=== PATIENT | male | born 1995 | race Caucasian/White ===

== ENCOUNTER 2023-03-06 07:40 | Emergency (ER) | payer SELFPAY ==
--- NOTE | 2023-03-06 08:17 | EDPHYS ---
Physician Documentation [facility] Name: Jayy Webster Age: 27 yrs Sex: Male : 1995 Arrival Date: 03/06/2023 Time: 07:40 Bed 3 Private MD: ED Physician Bam Johnson HPI: 03/06 08:12 This 27 yrs old Male presents to ER via Ambulatory with complaints of Cyst - sherry on neck. 08:12 The patient presents with an abscess of the back of neck, The patient presents with sherry cellulitis of the back of neck. Description: The affected area is moderate sized, confluent. Onset: The symptoms/episode began/occurred 7 day(s) ago. Possible cause(s): unknown. Associated signs and symptoms: The patient has no apparent associated signs or symptoms. Modifying factors: the symptoms are alleviated by remaining still, the symptoms are aggravated by pressure, squeezing the lesion and expressing the contents, touching. Severity of symptoms: At their worst the symptoms were moderate, in the emergency department the symptoms are unchanged. The patient has not experienced similar symptoms in the past. Historical: - Allergies: 07:51 No Known Allergies; hb - Home Meds: 07:51 None [Active]; hb - PMHx: 07:51 None; hb - PSHx: 07:51 None; hb - Immunization history:: Adult Immunizations up to date. - Social history:: Smoking status: Patient denies any tobacco usage or history of. - Family history:: not pertinent. ROS: 08:12 Constitutional: Negative for fever, chills, and weight loss, Eyes: Negative for injury, sherry pain, redness, and discharge, ENT: Negative for injury, pain, and discharge, Neck: Negative for injury, pain, and swelling, Cardiovascular: Negative for chest pain, palpitations, and edema, Respiratory: Negative for shortness of breath, cough, wheezing, and pleuritic chest pain, Abdomen/GI: Negative for abdominal pain, nausea, vomiting, diarrhea, and constipation, Back: Negative for injury and pain, : Negative for injury, bleeding, discharge, and swelling, MS/Extremity: Negative for injury and deformity, Neuro: Negative for headache, weakness, numbness, tingling, and seizure, Psych: Negative for depression, anxiety, suicide ideation, homicidal ideation, and hallucinations, Allergy/Immunology: Negative for hives, rash, and allergies, Endocrine: Negative for neck swelling, polydipsia, polyuria, polyphagia, and marked weight changes, Hematologic/Lymphatic: Negative for swollen nodes, abnormal bleeding, and unusual bruising, 08:12 Skin: Positive for abscess, cellulitis, Exam: 08:12 Constitutional: This is a well developed, well nourished patient who is awake, alert, sherry and in no acute distress. Head/Face: Normocephalic, atraumatic. Eyes: Pupils equal round and reactive to light, extra-ocular motions intact. Lids and lashes normal. Conjunctiva and sclera are non-icteric and not injected. Cornea within normal limits. Periorbital areas with no swelling, redness, or edema. ENT: Nares patent. No nasal discharge, no septal abnormalities noted. Tympanic membranes are normal and external auditory canals are clear. Oropharynx with no redness, swelling, or masses, exudates, or evidence of obstruction, uvula midline. Mucous membranes moist. Neck: Trachea midline, no thyromegaly or masses palpated, and no cervical lymphadenopathy. Supple, full range of motion without nuchal rigidity, or vertebral point tenderness. No Meningismus. Chest/axilla: Normal chest wall appearance and motion. Nontender with no deformity. No lesions are appreciated. Cardiovascular: Regular rate and rhythm with a normal S1 and S2. No gallops, murmurs, or rubs. Normal PMI, no JVD. No pulse deficits. Respiratory: Lungs have equal breath sounds bilaterally, clear to auscultation and percussion. No rales, rhonchi or wheezes noted. No increased work of breathing, no retractions or nasal flaring. Abdomen/GI: Soft, non-tender, with normal bowel sounds. No distension or tympany. No guarding or rebound. No evidence of tenderness throughout. Back: No spinal tenderness. No costovertebral tenderness. Full range of motion. Male : Normal genitalia with no discharge or lesions. MS/ Extremity: Pulses equal, no cyanosis. Neurovascular intact. Full, normal range of motion. Neuro: Awake and alert, GCS 15, oriented to person, place, time, and situation. Cranial nerves II-XII grossly intact. Motor strength 5/5 in all extremities. Sensory grossly intact. Cerebellar exam normal. Normal gait. Psych: Awake, alert, with orientation to person, place and time. Behavior, mood, and affect are within normal limits. 08:12 Skin: abscess, that is small, of the back of neck, cellulitis, that is mild, induration, that is moderate is noted, Vital Signs: 07:50 BP 129 / 86; Pulse 64; Resp 16; Temp 97.8(O); Pulse Ox 99% on R/A; Weight 54.43 kg; hb Height 5 ft. 5 in. ; Pain 8/10; 08:52 BP 134 / 87; Pulse 72; Resp 16; Pulse Ox 99% ; nw1 07:50 Body Mass Index 19.97 (54.43 kg, 165.1 cm) hb 07:50 Pain Scale: Adult hb Procedures: 08:18 I \T\ D: Incision and drainage was performed for an abscess of the back of neck. I \T\ D: ch a Prepped with Betadine, Anesthetized with 10 ml's 1% Lidocaine w/ Epi. Incised with #11 blade. Drained moderate amount purulent fluid. Packed with iodoform gauze, Dressing: non-Adherent dressing, the patient tolerated the procedure well. MDM: 07:46 Patient medically screened. [facility] 08:15 Differential diagnosis: abscess, cellulitis. Data reviewed: vital signs, nurses notes. [facility] Consideration of Admission/Observation Escalation of care including admission/observation considered. I considered the following discharge prescriptions or medication management in the emergency department Medications were administered in the Emergency Department. See MAR. Test considered but Not performed: Labs: no labs. Care significantly affected by the following chronic conditions: none. 03/06 08:11 Order name: Wound Culture [facility] 03/06 08:11 Order name: Dressing - Wound; Complete Time: 08: [facility] 03/06 08:11 Order name: Gloves, Sterile; Complete Time: 08: [facility] 03/06 08:11 Order name: Setup Suture Tray; Complete Time: 08:19 [facility] Administered Medications: 08: Drug: Lidocaine-Epinephrine Infiltration -1%: (1:100,000) 5 ml 20 ml Infiltration once; nw1 to bedside Volume: 20 ml; Route: Infiltration; 08:26 Drug: Doxycycline PO 200 mg PO once Route: PO; nw1 08:26 Drug: Trimethoprim-Sulfamethoxazole PO (160 mg-800 mg (DS) 1 tablet PO once Route: PO; nw1 08:26 Drug: Mupirocin Topical Ointment 2 % 1 application Topical once Route: Topical; Site: nw1 affected area; Disposition Summary: 03/06/23 08:16 Discharge Ordered Notes: Location: Home [facility] Problem: new sherry Symptoms: have improved sherry Condition: Stable sherry Diagnosis - Cutaneous abscess of neck sherry Followup: sherry - With: Private Physician - When: 2 - 3 days - Reason: Recheck today's complaints, Continuance of care, Re-evaluation by your physician Followup: [facility] - With: Lonnie Hennessy MD - When: 2 - 3 days - Reason: Recheck today's complaints, Continuance of care, Re-evaluation by your physician Discharge Instructions: - Discharge Summary Sheet [facility] - Skin Abscess [facility] - Incision and Drainage [facility] - Skin Abscess, Choc-da-Piva [facility] - Incision and Drainage, Care After [facility] Forms: - Medication Reconciliation Form [facility] - Thank You Letter [facility] - Antibiotic Education [facility] - Prescription Opioid Use [facility] - Patient Portal Instructions [facility] - Leadership Thank You Letter [facility] Prescriptions: - Centany 2 % Topical ointment - apply 1 application TOPICAL route 3 times per day; 15 gram tube; Refills: 0, [facility] Product Selection Permitted - Ibuprofen 600 mg Oral Tablet - take 1 tablet ORAL route every 6 hours As needed take with food; 30 tablet; [facility] Refills: 0, Product Selection Permitted - Doxycycline Hyclate 100 mg Oral Tablet - take 1 tablet ORAL route every 12 hours; 20 tablet; Refills: 0, Product [facility] Selection Permitted - Bactrim DS 800-160 mg Oral Tablet - take 1 tablet ORAL route every 12 hours for 10 days; 20 tablet; Refills: 0, [facility] Product Selection Permitted Signatures: Dispatcher [employer] Bam Peacock MD MD cha Baxter, Heather, RN RN Carina Monique RN RN nw1
--- NOTE | 2023-03-06 08:17 | ER ---
Nurse's Notes [facility] Name: Jayy Webster Age: 27 yrs Sex: Male : 1995 Arrival Date: 03/06/2023 Time: 07:40 Bed 3 Private MD: Diagnosis: Cutaneous abscess of neck Presentation: 03/06 07:50 Chief complaint: Abscess on back of neck x 4 days. Coronavirus screen: At this time, hb the client does not indicate any symptoms associated with coronavirus-19. Ebola Screen: No symptoms or risks identified at this time. Initial Sepsis Screen: Does the patient meet any 2 criteria? No. Patient's initial sepsis screen is negative. Does the patient have a suspected source of infection? No. Patient's initial sepsis screen is negative. Risk Assessment: Do you want to hurt yourself or someone else? Patient reports no desire to harm self or others. Onset of symptoms was March 02, 2023. 07:50 Method Of Arrival: Ambulatory hb 07:50 Acuity: DEJAH 4 hb Historical: - Allergies: 07:51 No Known Allergies; hb - Home Meds: 07:51 None [Active]; hb - PMHx: 07:51 None; hb - PSHx: 07:51 None; hb - Immunization history:: Adult Immunizations up to date. - Social history:: Smoking status: Patient denies any tobacco usage or history of. - Family history:: not pertinent. Screenin:59 [facility] ED Fall Risk Assessment (Adult) Score/Fall Risk Level 0 - 2 = Low Risk nj1 Oriented to surroundings, Maintained a safe environment, Hourly rounding (assess needs \T\ fall precautionary measures) done. Abuse screen: Denies threats or abuse. Denies injuries from another. Nutritional screening: No deficits noted. Tuberculosis screening: No symptoms or risk factors identified. Assessment: 07:57 General: Appears in no apparent distress. uncomfortable, Behavior is calm, cooperative, nj1 appropriate for age. Pain: Complains of pain in right mid cervical area Pain currently is 8 out of 10 on a pain scale. Neuro: Level of Consciousness is awake, alert, obeys commands, Oriented to person, place, time, situation. Cardiovascular: Patient's skin is warm and dry. Respiratory: Airway is patent Respiratory effort is even, unlabored. Derm: Abscess located on right mid cervical area is half dollar sized, Reports increased pain since . Vital Signs: 07:50 BP 129 / 86; Pulse 64; Resp 16; Temp 97.8(O); Pulse Ox 99% on R/A; Weight 54.43 kg; hb Height 5 ft. 5 in. ; Pain 8/10; 08:52 BP 134 / 87; Pulse 72; Resp 16; Pulse Ox 99% ; nw1 07:50 Body Mass Index 19.97 (54.43 kg, 165.1 cm) hb 07:50 Pain Scale: Adult hb ED Course: 07:44 Patient arrived in ED. im 07:46 Bam Johnson MD is Attending Physician. sherry 07:47 Wendy Tran, ALF is Primary Nurse. nj1 07:51 Triage completed. hb 07:51 Arm band placed on. hb 07:59 Patient has correct armband on for positive identification. Bed in low position. Call nj1 light in reach. Provided Education on: call light, fall precautions. 08:16 Lonnie Hennessy MD is Referral Physician. sherry 08:46 Wound Culture Sent. nw1 08:52 Assist provider with I \T\ D: of an abscess on right right side of neck Set up I\T\D tray. nw 1 Performed by Bam Johnson MD Wound packed. iodoform gauze, Dressing with Neosporin and 4X4s, tape Patient tolerated well. Patient did not have IV access during this emergency room visit. Administered Medications: 08:26 Drug: Lidocaine-Epinephrine Infiltration -1%: (1:100,000) 5 ml 20 ml Infiltration once; nw1 to bedside Volume: 20 ml; Route: Infiltration; 08:26 Drug: Doxycycline PO 200 mg PO once Route: PO; nw1 08:26 Drug: Trimethoprim-Sulfamethoxazole PO (160 mg-800 mg (DS) 1 tablet PO once Route: PO; nw1 08:26 Drug: Mupirocin Topical Ointment 2 % 1 application Topical once Route: Topical; Site: nw1 affected area; Medication: 08:52 VIS not applicable for this client. nw1 Outcome: 08:16 Discharge ordered by . sherry 08:52 Discharged to home ambulatory, nw1 08:52 Condition: stable 08:52 Discharge instructions given to patient, Instructed on discharge instructions, follow up and referral plans. medication usage, wound care, Demonstrated understanding of instructions, follow-up care, medications, wound care, Prescriptions given X 4 08:59 Patient left the ED. nw1 Signatures: Bam Johnson MD MD cha Baxter, Heather, RN RN Wendy Tran RN RN nj1 Laney Johnson Nicole RN RN nw1
[2023-03-06] MEDS ORDERED: LIDOCAINE 1% MPF 5 ML VIAL ONE (08:26)
[2023-03-06] MEDS ORDERED: SMZ./TMP. 800/160 MG TABLET ONE (08:35)
[2023-03-06] MEDS ORDERED: LIDOCAINE 1% 20 ML MDV ONE (08:35)
[2023-03-06] MEDS ORDERED: DOXYCYCLINE 100 MG CAP PO ONE (08:36)
[2023-03-06] MEDS ORDERED: MUPIROCIN 2% OINT 22GM TUBE TOP ONE (08:36)
[2023-03-06 09:06] VITALS: TEMP 97.8; O2SAT 99
[2023-03-06 09:07] VITALS: BP 134/87
== END 2023-03-06 08:59 | disposition home or self-care (01) ==
LOC: ER 07:40
PROC: 0J940ZZ Drainage of Right Neck Subcutaneous Tissue and Fascia, Open Approach (ICD-10-PCS; principal; 2023-03-06)
DX: L02.11 Cutaneous abscess of neck (principal)
CPT/HCPCS: 87070; 87205; 99284; J2001